=== PATIENT | female | born 1960 | race Caucasian/White ===

== ENCOUNTER 2016-11-02 14:49 | Outpatient (CLI) ==
--- NOTE | 2016-11-02 15:10 | DI ---
EXAM: Two views of the chest. History: Cough. Comparison: Chest radiograph 11/20/2015 Findings: Heart size is normal. Atherosclerotic vascular calcifications. Calcified granulomas aga in seen within the thorax. No focal consolidation. No appreciable pleural fluid and no pneumothora x. No acute osseous abnormalities Impression: No acute cardiopulmonary process. No change compared to the prior study.
== END 2016-11-02 14:50 | disposition home or self-care (01) ==
LOC: RAD 14:49
PROVIDERS: ATTEND Internal Medicine
DX: R05 Cough (principal)

== ENCOUNTER 2017-12-07 12:52 | Outpatient (CLI) | payer OTHER ==
--- NOTE | 2017-12-07 15:03 | US ---
Exam: Quezada-scale and color Doppler ultrasonographic evaluation of the carotid arteries. Comparison: 02/12/2016. Reason for exam: Hypertension left carotid bruit FINDINGS: There is a small amount of atheromatous plaque seen in the proximal right internal carotid artery The right ECA measures 0.9 meters per second The right CCA measures 0.6 / 0.1 meters per second. Right internal carotid artery peak systolic velocity measures 1.2 meters per second Right internal carotid artery/CCA PSV ratio measures 1.9 Right internal carotid artery end-diastolic velocity measures 0.3 meters per second There is normal antegrade right vertebral artery flow. There is a small amount of atheromatous plaque seen in the left internal carotid artery The left ECA measures 0.9 meters per second Left CCA measures 0.9 / 0.2 meters per second. Left internal carotid artery peak systolic velocity measures 1.0 meters per second Left internal carotid artery/CCA PSV ratio measures 1.1 Left internal carotid artery end-diastolic velocity measures 0.4 meters per second There is normal antegrade left vertebral artery flow. Impression: No significant stenosis is seen by peak systolic velocity measurements in either the right or left in ternal carotid arteries.
== END 2017-12-07 12:53 | disposition home or self-care (01) ==
LOC: RAD 12:52
PROVIDERS: ATTEND Internal Medicine
DX: Z12.31 Encounter for screening mammogram for malignant neoplasm of breast (principal); R09.89 Other specified symptoms and signs involving the circulatory and respiratory systems; I10 Essential (primary) hypertension
CPT/HCPCS: 77067

== ENCOUNTER 2017-12-22 09:19 | Outpatient (CLI) ==
--- NOTE | 2017-12-22 10:10 | MAMMO ---
EXAM: Digital right diagnostic mammogram with 3-D tomosynthesis HISTORY: Asymmetric density in the right central breast on MLO view only COMPARISON: Screening mammogram 12/07/2017 FINDINGS: Multiple MLO views of the breast were performed digitally and demonstrate scattered fibrog landular density. The previously noted abnormality is redemonstrated on 2-D imaging. 3-D imaging dem onstrates no focal mass or abnormality with findings most consistent with summation artifact. IMPRESSION: Asymmetric density in the left breast likely represents summation artifact. RECOMMENDATION: Return to annual screening mammogram BIRADS category II: Benign finding
== END 2017-12-22 09:20 | disposition home or self-care (01) ==
LOC: RAD 09:19
PROVIDERS: ATTEND Internal Medicine
DX: N64.89 Other specified disorders of breast (principal)

== ENCOUNTER 2018-08-24 10:05 | Outpatient (CLI) ==
--- NOTE | 2018-08-24 11:17 | DI ---
EXAM: CHEST FRONTAL AND LATERAL VIEWS HISTORY: Cough, left-sided chest pain. COMPARISON: 11/02/2016 FINDINGS: Heart size and mediastinal contour remain within normal limits. No acute infiltrates. Normal vascularity with no pleural fluid or pneumothorax. The bony thorax has no acute finding. IMPRESSION: No acute process.
--- NOTE | 2018-08-24 11:47 | DI ---
EXAM: Four views of the left ribs. History: Left-sided rib pain. Comparison: Chest radiograph 08/24/2018 Findings: Left lung is free of consolidation. No left pleural effusion and no left-sided pneumothor ax. No acute displaced left-sided rib fractures. Impression: Unremarkable left rib series
== END 2018-08-24 10:06 | disposition home or self-care (01) ==
LOC: RAD 10:05
PROVIDERS: ATTEND Internal Medicine
DX: R05 Cough (principal); R07.81 Pleurodynia

== ENCOUNTER 2018-10-03 07:50 | Outpatient (CLI) ==
--- NOTE | 2018-10-03 10:18 | CT ---
EXAM: CT abdomen pelvis with contrast HISTORY: Colitis, vaginal bleeding COMPARISON: None TECHNIQUE: CT abdomen pelvis performed with intravenous contrast. Coronal and sagittal reformatted images obtained. FINDINGS: The granulomatous calcification right lung base. No free air. No acute abnormalities of the bones. Degenerative change in the spine. Heart normal in size. Liver diffusely decreased atten uation. Liver is enlarged. Gallbladder appears normal. Pancreas appears normal. Spleen appears no rmal. Adrenals appear normal. Kidneys appear normal. The aorta normal in caliber. Moderate athero sclerosis. Bladder unremarkable. Uterus unremarkable. 3.7 cm left ovarian mass with macroscopic fa t. No lymphadenopathy or ascites. Stomach unremarkable. Duodenal diverticulum. No dilated loops s mall bowel. Appendix appears normal. Colonic diverticulosis. No inflammatory stranding identified in the abdomen pelvis. IMPRESSION: 1. No acute inflammatory process identified in the abdomen pelvis. 2. Colonic diverticulosis. 3. Hepatomegaly. Probable hepatic steatosis. 4. 3.7 cm left ovarian dermoid. 5. Atherosclerosis
== END 2018-10-03 07:51 | disposition home or self-care (01) ==
LOC: RAD 07:50
PROVIDERS: ATTEND Internal Medicine
DX: N90.89 Other specified noninflammatory disorders of vulva and perineum (principal); N95.0 Postmenopausal bleeding; K52.9 Noninfective gastroenteritis and colitis, unspecified; R10.9 Unspecified abdominal pain
CPT/HCPCS: 36415; 80053; 85025; 85651

== ENCOUNTER 2019-08-21 11:02 | Observation (INO) ==
[2019-08-21] MEDS ORDERED: NITROSTAT SL PRN (11:19)
[2019-08-21] MEDS ORDERED: VISTARIL INJ IM PRN (11:19)
[2019-08-21] MEDS ORDERED: ATROPINE SULFATE PFS IVP PRN (11:19)
[2019-08-21] MEDS ORDERED: TYLENOL PO PRN (11:19)
[2019-08-21] MEDS ORDERED: PROAIR HFA (SINGLE PATIENT USE) IH PRN (11:35)
[2019-08-21 11:42] VITALS: BMI 35.9
[2019-08-21 11:44] LABS: HEMATOCRIT 44.4 % (37.0-47.0)
[2019-08-21] MEDS: SOLU-CORTEF 250 MG IVP SCH ×3 (12:40→21:27)
[2019-08-21] MEDS: LEVAQUIN 500 MG/100 ML D5W 500 MG/100 ML BAG IV SCH (12:40)
[2019-08-21] MEDS: DEXTROSE 5%-1/2NS IV SOLUTION 1,000 ML IV SCH (12:40)
--- NOTE | 2019-08-21 13:17 | DI ---
EXAM: Chest two views HISTORY: Acute bronchitis, severe, chronic obstructive pulmonary disease, cough COMPARISON: 08/20/2019 TECHNIQUE: Two views of the chest were performed FINDINGS: Normal heart size. Normal mediastinal contour. Lungs are mildly hyperexpanded. No consol idation. No pleural effusion or pneumothorax. No acute abnormalities of the bones. IMPRESSION: Chronic obstructive pulmonary disease without acute airspace disease.
[2019-08-21] MEDS: DUONEB NEB SCH ×2 (14:09→19:15)
[2019-08-21] MEDS: PULMICORT 1 MG/2 ML NEB SCH (19:15)
[2019-08-22] MEDS: DEXTROSE 5%-1/2NS IV SOLUTION 1,000 ML IV SCH ×2 (00:53→12:38)
[2019-08-22] MEDS: DUONEB NEB SCH ×4 (04:50→19:55)
[2019-08-22] MEDS: PULMICORT 1 MG/2 ML NEB SCH ×2 (04:50→19:55)
[2019-08-22] MEDS: SOLU-CORTEF 250 MG IVP SCH ×3 (05:19→20:40)
[2019-08-22] MEDS: ASPIRIN EC PO SCH (08:00)
[2019-08-22] MEDS ORDERED: CYMBALTA PO SCH ×2 (09:00→21:00)
[2019-08-22] MEDS ORDERED: NORVASC PO SCH ×2 (09:00→21:00)
[2019-08-22] MEDS: LEVAQUIN 500 MG/100 ML D5W 500 MG/100 ML BAG IV SCH (09:24)
--- NOTE | 2019-08-22 09:32 | PCM.PROG ---
Attending Provider: ATTENDING PROVIDER: Dr. AUSTIN HILL This patient is seen with Danette Awad, Nurse Practitioner. DATE OF SERVICE: 08/22/19 SUBJECTIVE: This 58 year old /WHITE F was hospitalized 08/21/19. The patient is resting comfortably in bed. She is feeling better today, less short of breath. Chest x-ray showed COPD without acute air space disease. REVIEW OF SYSTEMS: CONSTITUTIONAL: Weakness. No night sweats. No fatigue, malaise, lethargy. No fever or chills. HEENT: Eyes: No visual changes. No eye pain. No eye discharge. ENT: No runny nose. No epistaxis. No sinus pain. No odynophagia. No congestion. RESPIRATORY: Cough. No hemoptysis. Shortness of breath improving. CARDIOVASCULAR: No angina symptoms. No CHF symptoms. No atypical chest pain for CAD. No palpitations. No orthopnea.. GASTROINTESTINAL: Decreased appetite. No abdominal pain. No nausea or vomiting. No diarrhea or constipation. No hematemesis. No hematochezia. GENITOURINARY: No urgency. No frequency. No dysuria. No hematuria. No obstructive symptoms. No discharge. No pain. No significant abnormal bleeding. MUSCULOSKELETAL: No musculoskeletal pain; no joint swelling. NEUROLOGICAL: Awake, alert, oriented to time, place and person. No headache. No neck pain. No syncope. No seizures. No dizziness. PSYCHIATRIC: Not anxious. No depression. No suicidal thoughts. No homicidal thoughts. SKIN: No rash. No lesions. No wounds. ENDOCRINE: No unexplained weight loss. No weight gain. HEMATOLOGIC/LYMPHATIC: No anemia. No purpura. No petechiae. No prolonged or excessive bleeding. No palpable lymph nodes. PHYSICAL EXAMINATION: GENERAL: The patient is awake, alert and oriented, lying/sitting in bed in no distress. VITAL SIGNS: Temperature 97.4 F, Pulse 68, Respiratory Rate 16, BP 144/79, Pulse Ox 100% HEENT: Head normocephalic, atraumatic. Eyes: Extraocular muscles are intact. Pupils are equal, round and reactive to light and accommodation. Ears: No lesions. Nose appeared normal. Throat: No exudate or erythema. NECK: Supple. No JVD, no carotid bruit. No lymphadenopathy or thyromegaly. LUNGS: Bilateral expiratory wheezing. Percussion note normal. Chest symmetrical. HEART: S1, S2, no S3. No murmurs. No cyanosis or clubbing. No ascites. Pulses: Dorsalis pedis and posterior tibial pulses +1 to +2 both sides. ABDOMEN: Soft. Non-tender. Bowel sounds active. No CVA tenderness. No mass felt. EXTREMITIES: No edema. Full range of motion of all extremities, equal. NEUROLOGIC: No focal deficit. Cranial nerves II through XII are grossly intact. No headache, no double vision or headache. SKIN: Not dry. Intact. Turgor-normal. LYMPHATIC: No palpable lymph nodes/no lymphedema. MUSCULOSKELETAL: Normal joints with no swelling. Muscle tone is normal. LAB REVIEW: 08/22/19 03:30 08/22/19 03:30 08/22/19 03:30: WBC 3.11 L, RBC 4.60, Hgb 13.4, Hct 41.0, MCV 89.1, MCH 29.1, MCHC 32.7, RDW Coeff of Hazel 13.2, Plt Count 227, Immature Gran % (Auto) 0.6, Neut % (Auto) 65.7, Lymph % (Auto) 27.3, [place] % (Auto) 6.1, Eos % (Auto) 0.0, Baso % (Auto) 0.3, Immature Gran # (Auto) 0.0, Neut # (Auto) 2.0, Lymph # (Auto) 0.9, [place] # (Auto) 0.2 L, Eos # (Auto) 0.0, Baso # (Auto) 0.0 08/22/19 03:30: Sodium 139.3, Potassium 4.29, Chloride 100.9, Carbon Dioxide 30.0, Anion Gap 12.69, BUN 10.8, Creatinine 0.64, Estimated GFR (MDRD) 95.00, BUN/Creatinine Ratio 16.87, Glucose 222.1 H D, Calcium 9.40, Total Bilirubin 0.24, AST 57.9 H, ALT 53.1 H, Alkaline Phosphatase 77.3, Total Creatine Kinase 96.6, Troponin I 0.153 H, Total Protein 7.21, Albumin 3.95, Globulin 3.26, Albumin/Globulin Ratio 1.21 08/21/19 19:30: Total Creatine Kinase 71.8, Troponin I 0.307 H 08/21/19 12:43: Urine Color Yellow, Urine Clarity Clear, Urine pH 6.0, Ur Specific Stra[place] >=1.030, Urine Protein 1+ H, Urine Glucose (UA) Negative, Urine Ketones Negative, Urine Blood Negative, Urine Nitrite Negative, Urine Bilirubin Negative, Urine Urobilinogen 0.2, Ur Leukocyte Esterase Negative, Ur Squamous Epith Cells 5-10, Urine Mucus Trace 08/21/19 11:40: Puncture Site R brach, O2 Saturation 97.0, ABG pH 7.523 H*, ABG pCO2 32.2 L, ABG pO2 80.0 L, ABG HCO3 26.5 H, ABG Total CO2 27, ABG Base Excess 4 H, Cirlio Test +, FiO2 % 21.0 08/21/19 11:36: Sodium 136.9, Potassium 3.59, Chloride 102.2, Carbon Dioxide 25.8, Anion Gap 12.49, BUN 11.7, Creatinine 0.57 L, Estimated GFR (MDRD) 108.00, BUN/Creatinine Ratio 20.52, Glucose 133.5 H, Calcium 9.37, Total Bilirubin 0.35, AST 72.2 H, ALT 58.9 H, Alkaline Phosphatase 98.9, Total Creatine Kinase 73.2, Troponin I 0.238 H, Total Protein 7.86, Albumin 4.19, Globulin 3.67, Albumin/Globulin Ratio 1.14 08/21/19 11:36: WBC 6.15, RBC 5.06, Hgb 14.9, Hct 44.4, MCV 87.7, MCH 29.4, MCHC 33.6, RDW Coeff of Hazel 13.3, Plt Count 260, Immature Gran % (Auto) 0.3, Neut % (Auto) 62.9, Lymph % (Auto) 28.0, [place] % (Auto) 8.3, Eos % (Auto) 0.2, Baso % (Auto) 0.3, Immature Gran # (Auto) 0.0, Neut # (Auto) 3.9, Lymph # (Auto) 1.7, [place] # (Auto) 0.5, Eos # (Auto) 0.0, Baso # (Auto) 0.0 ASSESSMENT: Please see below. 1. Acute bronchitis with severe COPD. 2. Hypertension. 3. Smoker. PLAN: 1. Will continue IV fluids. Plan and coordination of the patient's care discussed in the presence of Handle Bar Assembler and nurse. EDUCATION: Counseling for smoking done. CONDITION: Stable SCRIBED BY: KARISSA FLOYD Asset Protection Representative scribed while in presence of service performed by Dr. Hill/Danette Awad APRN on 08/22/19 ([id number])
--- NOTE | 2019-08-22 14:00 | HP ---
DATE OF SERVICE: 08/21/2019 REASON FOR HOSPITALIZATION/HISTORY OF PRESENT ILLNESS: ER followup and complaining of cough/congestion with whitish/yellowish sputum. Dry cough times two to three weeks. The patient is on Z-pack and Prednisone= Just got done with it. The patient is tired and fatigued. He was in the ER on 08/20/19. Was given NEBS. No symptoms of CHF/CAD. PAST MEDICAL HISTORY: Anxiety COPD Hypertension PAST SURGICAL HISTORY: Tubal ligation. REVIEW OF SYSTEMS: CONSTITUTIONAL: No fever, Fatigue. HEENT: Sinus drainage, no sore throat. RESPIRATORY: Cough for three weeks, no congestion. CARDIOVASCULAR: No atypical chest pain for coronary artery disease. No angina, CHF symptoms, palpitations. Shortness of breath with minimal exertion. GASTROINTESTINAL: No melena or abdominal pain. No GERD. GENITOURINARY: No hematuria, no prostatism, no polyuria. SCUBA DIVING TEACHER: No blackout, no dizziness, no headache, no double vision. MUSCULOSKELETAL: Osteoarthritis pain, no joint swelling. ENDOCRINE: No weight loss, no weight gain. SKIN: Not dry, no rash. PSYCHIATRIC: Anxious, no depression, no suicidal thoughts, no homicidal thoughts. Appetite now, No weight loss in three months. SOCIAL HISTORY: Marital Status: . Alcohol Usage: No. Tobacco Usage: Yes. FAMILY HISTORY: Father ; hypertension, diabetes mellitus II, Heart Mother ; heart Brother 4 Sister 1 MEDICATIONS: ProAir inhaler QID Cymbalta 30mg daily Norvasc 5mg PO daily Was on blood pressure medication, not taking, doesn't know name. ALLERGIES: Pravachol-cramps Atorvastatin Dulera-cough Lipitor Hyzaar-cough Cardizem-cough Benicar-cough [place] -Cough Losartan-Cough Floxin-Hives Penicillin- Hives PHYSICAL EXAMINATION: V/S: Pulse 100, blood pressure 140/78, temperature 99, oxygen saturation 95%, BMI 36.2, height 5'0, weight 18.50. GENERAL APPEARANCE: Oriented times three. HEENT: Normal. NECK: No JVP, no bruits. RESPIRATORY: Decreased breath sounds. Poor air entry. CARDIOVASCULAR: S1, S2, no S3, no murmur. No cyanosis, clubbing. No ascites. GI/ABDOMEN: No tenderness. Bowel sounds are active. EXTREMITIES: edema, pulses +1, equal. SCUBA DIVING TEACHER: Deep tendon reflexes, sensory, motor and gait all normal. RECTAL: The patient refused /PELVIC: Hysterectomy Dr. Mcmahon. Mammogram 12/26/18. Advised yearly. ER record reviewed. ASSESSMENT: 1. Acute bronchitis/Severe COPD 2. Cough with chest tightness 3. High risk for CAD/CVA/PAD event 4. Intelligent 5. Noncompliance of lifestyle, medications and diet 6. Insomnia 7. Dermoid cyst ovaries, hysterectomy 8. Hepatic stenosis 9. Elevated liver function 10.Smoking 11.Mild depression 12.Left carotid bruit. 13.Hypothyroidism 14.Fatty liver, refused ultrasound 15.Dyslipidemia 16.Hypertension 17.COPD 18.Anxiety 19.Obesity 20.Hyperglycemia 21.History of bronchitis 22.Leg edema 23.Hysterectomy 24.Dermatis PLAN: 1. Admit 2. Routine telemetry 3. 1000 cc D5 1/2 normal saline 12 hourly 4. 125mg IV Solu-Cortef now and 8 hourly 5. Levaquin 500mg IV piggyback 24 hourly 6. NEBS DUO NEBS QID 7. Pulmicort BID 8. Sputum for Culture and sensitivity 9. Continue home medications 10.ABG on room air 11.Oxygen 2 liters nasal cannula TIME SPENT: More than 70 minutes. MTDD
[2019-08-23] MEDS: DEXTROSE 5%-1/2NS IV SOLUTION 1,000 ML IV SCH (01:35)
[2019-08-23 05:35] VITALS: BP 143/76; TEMP 97.7
[2019-08-23 05:35] LABS: HEMATOCRIT 39.1 % (37.0-47.0)
[2019-08-23] MEDS: PULMICORT 1 MG/2 ML NEB SCH (05:44)
[2019-08-23] MEDS: DUONEB NEB SCH ×2 (05:44→10:07)
[2019-08-23] MEDS: SOLU-CORTEF 250 MG IVP SCH ×2 (06:00→12:36)
[2019-08-23] MEDS: LEVAQUIN 500 MG/100 ML D5W 500 MG/100 ML BAG IV SCH (08:47)
[2019-08-23] MEDS: ASPIRIN EC PO SCH (08:51)
--- NOTE | 2019-08-23 12:13 | CM.DICTOOL ---
ADMISSION: 08/21/19 11:19 DISCHARGE: AUGUST 23, 2019 DATE OF SERVICE: 08/23/19 FINAL DIAGNOSIS ACUTE BRONCHITIS SEVERE COPD HYPERTENSION HEPATIC STEATOSIS LEFT CAROTID BRUIT DYSLIPIDEMIA OBESITY ANXIETY HYPERGLYCEMIA MILD DEPRESSION NON-COMPLIANT OF LIFESTYLE, MEDICATIONS AND DIET HYPOTHYROIDISM DIVERTICULOSIS SMOKING, NOT SMOKED X 1 WEEK HYSTERECTOMY LAST VITALS Temp Pulse Resp BP Pulse Ox 97.7 F 96 H 16 143/76 H 95 08/23/19 05:34 08/23/19 05:34 08/23/19 05:34 08/23/19 05:34 08/23/19 10:00 TAKE THESE MEDICATIONS AT HOME Albuterol Sulfate (Proair Hfa) 2 puff IH Q6H PRN PRN Reason: Wheezing Albuterol RTQID PRN Last Admin: 08/23/19 10:07 Dose: 3 ml Documented by: Duloxetine HCl (Cymbalta) 30 mg PO BEDTIME [facility] Last Admin: 08/22/19 20:20 Dose: 30 mg Documented by: Cardizem 60 mg BID [facility] (new) ALLERGIES Penicillins Adverse Reaction (Verified 08/20/19 14:51) DISCONTINUED MEDICATIONS Amlodipine NEW PRESCRIPTIONS: CARDIZEM 60 MG BID LEVAQUIN 500 MG DAILY FOR 5 DAYS PREDNISONE 10 MG 2 TABLETS DAILY FOR 5 DAYS TAKE WITH FOOD SMOKING: ADVISED TO STOP SMOKING (NOT SMOKED X 1 WEEK) DISEASE SPECIFIC EDUCATION: USE OF NEBULIZER AND INHALER USE OF ORAL STEROIDS AND RISK OF GI IRRITATION, CATARACT FORMATION, AVASCULAR NECROSIS PRESCRIPTIONS LAB REVIEW: 08/23/19 05:05 08/23/19 05:05 08/23/19 05:05: WBC 5.83, RBC 4.39, Hgb 12.8, Hct 39.1, MCV 89.1, MCH 29.2, MCHC 32.7, RDW Coeff of Hazel 13.1, Plt Count 246, Neutrophils % (Manual) 60.0, Ly mphocytes % (Manual) 28.0, Monocytes % (Manual) 11.0 H, Basophils % (Manual) 1.0, Anisocytosis Not present 08/23/19 05:05: Sodium 139.7, Potassium 3.82, Chloride 103.7, Carbon Dioxide 29.9, Anion Gap 9.92, BUN 8.6, Creatinine 0.49 L, Estimated GFR (MDRD) 129.00, BUN/Creatinine Ratio 17.55, Glucose 187.1 H, Calcium 9.30, Total Bilirubin 0.18 L, AST 45.8 H, ALT 49.4 H, Alkaline Phosphatase 70.2, Total Protein 7.07, Albumin 3.77, Globulin 3.30, Albumin/Globulin Ratio 1.14 PLAN: DISCHARGE HOME DIET: RESUME TOLERATED. ENCOURAGED LIQUIDS ACTIVITY: GRADUALLY RESUME TOLERATED LIMIT OUTDOOR ACTIVITIES, AVOID CROWDS CALL OFFICE TO MAKE AN APPOINTMENT TO SEE DR. HILL IN 5-7 DAYS USE ALBUTEROL NEBULIZER TREATMENTS FOUR TIMES A DAY NEEDED USE ALBUTEROL INHALER PRN CODE STATUS: FULL CODE MRS. HOPE IS ALERT AND ORIENTED X 4. SHE LIVES WITH HER SPOUSE. SHE IS AGREEABLE TO PLANS FOR DISCHARGE HOME AND WILL BE TRANSPORTED BY HER . SHE IS INDEPENDENT WITH ALL ACTIVITIES OF DAILY LIVING. SHE IS AMBULATORY WITHOUT THE USE OF ASSISTIVE DEVICE. GAIT IS STEADY. OXYGEN SATURATION WITH ACTIVITY IS 90%. MRS. HOPE HAS A NEBULIZER WITH ALBUTEROL FOR HER USE AT HOME. SHE IS ENCOURAGED TO USE THIS AT LEAST FOUR TIMES A DAY IF NEEDED FOR SHORTNESS OF AIR OR WHEEZING. MEAL INTAKES ARE POOR TO FAIR AT 0-50%. SHE REPORTS SHE IS DRINKING LIQUIDS, BUT HER APPETITE IS NOT UP TO NORMAL YET. SHE IS CONTINENT OF BOWEL AND BLADDER. HYDRATION STATUS HAS IMPROVED. SKIN IS INTACT. AUSTIN HILL MD
[2019-08-23] MEDS ORDERED: CARDIZEM PO ONE (12:30)
--- NOTE | 2019-08-24 09:16 | ECHO2D ---
Date of Exam: 08/23/2019 Ordering Physician: DR. AUSTIN HILL Room #: 119 Reason for Echo: HTN, SOB, OBESITY, COPD M-Mode Normal Adult Results LV Dimensions Normal Adult Results AoV Opening excursions >1.6 >1.6 LVEDD-base- 3.5-5.8 3.7 Ao root dimensions 2.0-3.7 2.5 LVESD-base- 3.1-4.6 L. Atrium dimensions 1.9-3.8 3.2 Post. Wall thickness 0.8-1.1 1.1 IV septum (thickness) 0.7-1.2 1.1 Post. Wall excursion 0.72-1.3 Septal motion NORMAL Systolic motion R. Ventricular cavity 1.5-2.0 NORMAL LVEF 60% 67% Paradoxical septal wall motion NORMAL 2-D : 2-D M Mode Echocardiogram was performed using apical four chamber and left parasternal long and short axis views. Mitral, tricuspid and aortic valves appear to be normal. Contractility of the left ventricle seems to be normal, so is the cavity size. Left atrial cavity size and aortic root appear to be normal. There is no pericardial effusion. There is no thrombus noted in the left ventricle or left atrial cavity. No mitral valve prolapse noted. M-MODE: MV: NORMAL AV: NORMAL TV: NORMAL PV: CHAMBER SIZE: NORMAL WALL MOTION: NORMAL PERICARDIUM: NORMAL INTERPRETATION: 1. NORMAL 2 "D" "M" MODE ECHO 2. [] 3. [] 4. [] MTDD
--- NOTE | 2019-08-25 11:25 | DS ---
DATE OF SERVICE: 08/23/19 FINAL DIAGNOSIS: 1. ACUTE BRONCHITIS 2. SEVERE COPD 3. HYPERTENSION 4. HEPATIC STEATOSIS 5. LEFT CAROTID BRUIT 6. DYSLIPIDEMIA 7. OBESITY 8. ANXIETY 9. HYPERGLYCEMIA 10. MILD DEPRESSION 11. NON-COMPLIANT OF LIFESTYLE, MEDICATIONS AND DIET 12. HYPOTHYROIDISM 13. DIVERTICULOSIS 14. SMOKING, NOT SMOKED X 1 WEEK 15. HYSTERECTOMY LAST VITALS Temp Pulse Resp BP Pulse Ox 97.7 F 96 H 16 143/76 H 95 08/23/19 05:34 08/23/19 05:34 08/23/19 05:34 08/23/19 05:34 08/23/19 10:00 DISCHARGE INSTRUCTIONS: 1. DISCHARGE HOME. 2. CALL OFFICE TO MAKE AN APPOINTMENT TO SEE DR. HILL IN 5-7 DAYS. 3. LIMIT OUTDOOR ACTIVITIES, AVOID CROWDS. 4. USE ALBUTEROL NEBULIZER TREATMENTS FOUR TIMES A DAY NEEDED. 5. USE ALBUTEROL INHALER PRN. 6. CODE STATUS: FULL CODE. MEDICATIONS AT DISCHARGE: Albuterol Sulfate (Proair Hfa) 2 puff IH Q6H PRN PRN Reason: Wheezing Albuterol RTQID PRN Last Admin: 08/23/19 10:07 Dose: 3 ml Documented by: Duloxetine HCl (Cymbalta) 30 mg PO BEDTIME [facility] Last Admin: 08/22/19 20:20 Dose: 30 mg Documented by: Cardizem 60 mg BID [facility] (new) NEW PRESCRIPTIONS: CARDIZEM 60 MG BID LEVAQUIN 500 MG DAILY FOR 5 DAYS PREDNISONE 10 MG 2 TABLETS DAILY FOR 5 DAYS TAKE WITH FOOD DISCONTINUED MEDICATIONS: Amlodipine DIET INSTRUCTIONS: RESUME TOLERATED. ENCOURAGED LIQUIDS ACTIVITY: GRADUALLY RESUME TOLERATED SMOKING: ADVISED TO STOP SMOKING (NOT SMOKED X 1 WEEK) DISEASE SPECIFIC EDUCATION: USE OF NEBULIZER AND INHALER USE OF ORAL STEROIDS AND RISK OF GI IRRITATION, CATARACT FORMATION, AVASCULAR NECROSIS PRESCRIPTIONS HOSPITAL COURSE: 58-year-old white female hospitalized with acute bronchitis and severe chronic lung disease. The patient has respiratory distress in the emergency room. she was given a couple of breathing treatments, IV steroids and antibiotics. Her breath settled down and she was kept in the hospital for 48 hours on observation. The patient in the hospital was treated with steroids, NEBS and IV Levaquin. The patient's condition improved with Solu-Cortef, nebs. The patient is a smoker. She is advised to quit smoking. The patient didn't qualify for oxygen. The patient's echo showed normal LV contractility. Enlarged LA cavity. The patient is tachycardic with little exertion. Amlodipine was discontinued. The patient was put on Cardizem 60 mg twice a day to control her heart rate. At the time of discharge she was put on Levaquin p.o. 500 mg for five days, Prednisone two tablets 10 mg for five days. The side effects of steroids discussed including avascular necrosis of the bones, osteoporosis. The patient is advised to continue the rest of the medications as before. The patient's BMI is 36, strongly advised to lose weight. PFT will be done as an outpatient in the office. The patient will be on Ventolin two puffs four times a day as needed. Duloxetine 30 mg p.o. daily along with Cardizem 60 mg twice a day. The patient's blood sugar was high because of steroids. The patient is prediabetic. Counseling was done to lose weight. Counseling for smoking done. 08/23/19 05:05: WBC 5.83, RBC 4.39, Hgb 12.8, Hct 39.1, MCV 89.1, MCH 29.2, MCHC 32.7, RDW Coeff of Hazel 13.1, Plt Count 246, Neutrophils % (Manual) 60.0, Lymphocytes % (Manual) 28.0, Monocytes % (Manual) 11.0 H, Basophils % (Manual) 1.0, Anisocytosis Not present 08/23/19 05:05: Sodium 139.7, Potassium 3.82, Chloride 103.7, Carbon Dioxide 29.9, Anion Gap 9.92, BUN 8.6, Creatinine 0.49 L, Estimated GFR (MDRD) 129.00, BUN/Creatinine Ratio 17.55, Glucose 187.1 H, Calcium 9.30, Total Bilirubin 0.18 L, AST 45.8 H, ALT 49.4 H, Alkaline Phosphatase 70.2, Total Protein 7.07, Albumin 3.77, Globulin 3.30, Albumin/Globulin Ratio 1.14 TIME SPENT: More than 60 minutes. MTDD
--- NOTE | 2019-08-25 11:46 | PN ---
DATE OF SERVICE: 08/23/19 SUBJECTIVE: 58-year-old white female hospitalized with acute bronchitis, severe COPD. The patient has respiratory distress in the emergency room. She was given a couple of breathing treatments, IV steroids and antibiotics. Her breathing settled down and she was kept in the hospital for 48 hours on observation. She was treated with NEBS treatment, steroids, IV Levaquin and oxygen supplements were given. The patient's condition has improved. The patient didn't qualify for oxygen on discharge. She was discharged home on Levaquin and Prednisone combination. Cardizem was added because of her sinus tachycardia. Amlodipine was discontinued. Echo showed normal LV contractility. She is up and about. She is not in any distress. The cough is very mild. REVIEW OF SYSTEMS: CONSTITUTIONAL: No night sweats. No fatigue, malaise, lethargy. No fever or chills. HEENT: Eyes: No visual changes. No eye pain. No eye discharge. ENT: No runny nose. No epistaxis. No sinus pain. No sore throat. No odynophagia. No congestion. RESPIRATORY: Mild cough. No hemoptysis. Shortness of breath on exertion as usual. CARDIOVASCULAR: No angina symptoms. No CHF symptoms. No atypical chest pain for CAD. No palpitations. No PND. No orthopnea. GASTROINTESTINAL: No abdominal pain. No nausea or vomiting. No diarrhea or constipation. No hematemesis. No hematochezia. GENITOURINARY: No urgency. No frequency. No dysuria. No hematuria. No obstructive symptoms. No discharge. No pain. No significant abnormal bleeding. MUSCULOSKELETAL: No musculoskeletal pain; no joint swelling. NEUROLOGICAL: No headache. No neck pain. No syncope. No seizures. No dizziness. PSYCHIATRIC: Not anxious. No depression. No suicidal thoughts. No homicidal thoughts. SKIN: No rash. No lesions. No wounds. ENDOCRINE: No unexplained weight loss. No weight gain. HEMATOLOGIC/LYMPHATIC: No anemia. No purpura. No petechiae. No prolonged or excessive bleeding. No palpable lymph nodes. PHYSICAL EXAMINATION: VITAL SIGNS: Temperature 97.7, pulse 96, respiratory rate 16, BP 140/70, pulse ox 97%. HEENT: Head normocephalic, atraumatic. Eyes: Extraocular muscles are intact. Pupils are equal, round and reactive to light and accommodation. Ears: No lesions. Nose appeared normal. Throat: No exudate or erythema. NECK: Supple. No JVD, no carotid bruit. No lymphadenopathy or thyromegaly. LUNGS: Decreased breath sounds. Clear to auscultation. Percussion note normal. Chest symmetrical. HEART: S1, S2, no S3. No murmurs. No cyanosis or clubbing. No ascites. Pulses: Dorsalis pedis and posterior tibial pulses +1 to +2 bilaterally. ABDOMEN: Soft. Nontender. Bowel sounds active. No CVA tenderness. No mass felt. EXTREMITIES: No edema. Full range of motion of all extremities, equal. NEUROLOGIC: No focal deficit. Cranial nerves II through XII are grossly intact. No headache, no double vision or headache. SKIN: Not dry. Intact. Turgor - normal. LYMPHATIC: No palpable lymph nodes/no lymphedema. MUSCULOSKELETAL: Normal joints with no swelling. Muscle tone is normal. LABS: Hemoglobin 12.8, hematocrit 39, WBC 5,800, normal differential. Creatinine 0.4. BUN 8, potassium 3.8. ASSESSMENT: 1. Acute bronchitis with severe chronic lung disease 2. Hypertension 3. Obesity 4. Smoking PLAN: 1. Discontinue Amlodipine. 2. Cardizem 60 mg twice a day. 3. Levaquin 500 mg p.o. for five days. 4. Prednisone two tablet PO for 5 days 5. Continue Baby Aspirin. 6. The patient is strongly advised to lose weight. 7. The patient is going to be discharged home. 8. Come back in 5-7 days on followup. CONDITION: Stable. TIME SPENT: More than 30 minutes. Plan and coordination of the patient's care discussed in the presence of nurse. DANN
--- NOTE | 2019-08-28 10:59 | PN ---
08/21/2019: Level 5 08/22/2019: Intermediate 08/23/2019: D as in discharge MTDD
== END 2019-08-23 13:35 | disposition home or self-care (01) ==
LOC: INTOOBSV 11:02 → MEDSURG B 11:02
PROVIDERS: ADMIT Internal Medicine; ATTEND Internal Medicine
DX: R60.0 Localized edema; J44.0 Chronic obstructive pulmonary disease with (acute) lower respiratory infection; F32.9 Major depressive disorder, single episode, unspecified; R53.1 Weakness; R73.9 Hyperglycemia, unspecified; F41.9 Anxiety disorder, unspecified; E66.9 Obesity, unspecified; K76.0 Fatty (change of) liver, not elsewhere classified; R94.5 Abnormal results of liver function studies; R07.89 Other chest pain; I10 Essential (primary) hypertension; J20.9 Acute bronchitis, unspecified; F17.210 Nicotine dependence, cigarettes, uncomplicated; G47.00 Insomnia, unspecified; R09.89 Other specified symptoms and signs involving the circulatory and respiratory systems; E03.9 Hypothyroidism, unspecified; E78.5 Hyperlipidemia, unspecified; L30.9 Dermatitis, unspecified; R06.02 Shortness of breath; Z91.14 Patient's other noncompliance with medication regimen